=== PATIENT | female | born 1960 | race Two or more races ===

== ENCOUNTER 2018-06-23 06:00 | Day surgery (SDC) | payer BC ==
[~2018-06-23] VITALS: Ht 152.4 cm; Wt 56.7 kg
[~2018-06-23 06:00] MED LIST: ARIP10TA9 PO; ASCO500C9 PO; CHOL100013 PO; CLINDAMYCIN 900MG PREMIX 50 ML IV ONE; CYCL10TA2 PO; GLYC10.7 IH; HYDR-2145 PO; HYDR-2765 PO; LORA10TA3 PO; MONT10TA9 PO; MULT1TAB52 PO; POTA20TA82 PO; QUET50TA5 PO; VENTOLIN HFA18 GM INH
[2018-06-23] MEDS ORDERED: IV RINGERS,LACTATED 1000ML 1,000 ML IV SCH (07:00)
[2018-06-23] MEDS ORDERED: MORPHINE SULFATE 2 MG/ML VIAL. IV PRN (07:00)
[2018-06-23] MEDS ORDERED: LIDOCAINE 1% PF 2 ML VIAL. ID PRN (07:00)
[2018-06-23] MEDS ORDERED: HYDROmorphone 2 MG/ML VIAL IV PRN (07:00)
[2018-06-23] MEDS ORDERED: ONDANSETRON PF 4 MG/2 ML VIAL. IV PRN (07:00)
[2018-06-23] MEDS ORDERED: PROCHLORPERAZINE 10 MG/2 ML VIAL. IV PRN (07:00)
[2018-06-23] MEDS ORDERED: fentaNYL PF VIAL 100 MCG/2 ML VIAL IV PRN (07:00)
[2018-06-23] MEDS ORDERED: EPINEPHrine VIAL 30 MG/30 ML VIAL ONE (07:07)
[2018-06-23] MEDS ORDERED: BUPIVAC MPF-EPI 0.5%-1:200000 30 ML VIAL. ONE (07:07)
[2018-06-23] MEDS ORDERED: MIDAZOLAM HCL/PF 2 MG/2 ML VIAL. ONE (07:20)
[2018-06-23] MEDS ORDERED: fentaNYL PF VIAL 100 MCG/2 ML VIAL ONE ×4 (07:20→10:05)
[2018-06-23] MEDS ORDERED: ONDANSETRON PF 4 MG/2 ML VIAL. ONE (07:20)
[2018-06-23] MEDS ORDERED: DEXAMETHASONE SOD PHOS 20 MG/5 ML VIAL. ONE (07:20)
[2018-06-23] MEDS ORDERED: LIDOCAINE 2% PF Vial for OR 5 ML VIAL. ONE (07:20)
[2018-06-23] MEDS ORDERED: PROPOFOL 20 ML IV ONE (07:20)
--- NOTE | 2018-06-23 07:45 | DISCH ---
DISCHARGE INSTRUCTIONS Condition on Discharge Condition on Discharge: Stable Activity After Discharge Activity Instructions for Disc: Other, see below (ambulation with crutches until can walk without limping) Weight Bearing Status after Di: As tolerated Diet after Discharge Diet after Discharge: Regular Wound Incision Care Wound/Incision Care: Ice to area for comfort, Keep wound elevated, Change dressing (May remove dressing in 3 days may then shower, no soaking) Community/Resources/Services Services at Discharge: PT EVALUATE & TREAT (weightbearing as tolerated immediate motion standard ACL protocol with closed chain exercises) Contacting the [facility] after DC Call your doctor for: Concerns you may have Follow-Up Follow up with: Clara 1 week Treatment/Equipment after DC Adaptive Equipment Issued: MICHAEL Veronica MD Jun 23, 2018 07:45
[2018-06-23] MEDS ORDERED: OXYC1TAB19 PO (07:48)
[2018-06-23] MEDS ORDERED: PHENYLEPHRINE in 0.9% NACL PF 1 MG/10 ML SYRINGE. IV ONE (07:50)
[2018-06-23] MEDS ORDERED: ePHEDrine PF IN SALINE 50 MG/5 ML DISP.SYRIN IV ONE (07:53)
[2018-06-23] MEDS ORDERED: SEVOFLURANE 61 TO 120 MINUTES. IH ONE (08:46)
[2018-06-23] MEDS ORDERED: PROCHLORPERAZINE 10 MG/2 ML VIAL. ONE (09:31)
[2018-06-23] MEDS ORDERED: oxyCODONE/APAP 7.5/325 1 TAB TABLET PO ONE (09:45)
[2018-06-23] MEDS: fentaNYL PF VIAL 100 MCG/2 ML VIAL IV PRN ×3 (09:55→10:20)
[2018-06-23 11:15] VITALS: BP 115/64
--- NOTE | 2018-06-23 19:05 | PDOC4 ---
Operative Note Operative Note Date of surgery: 06/23/2018 Preoperative diagnosis: Right knee ACL tear Postoperative diagnosis: Same plus free edge fraying medial meniscus Operative procedure: Right knee arthroscopy partial medial meniscectomy and allograft ACL reconstruction Surgeon: Clara Assist: Elizabeth Anesthesia: Gen. 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 We had talked about her injury the functional anatomy possible nonoperative treatment rehabilitation and bracing versus ACL reconstruction and graft choices along with the recovery process rationale and possible risks of failure instability premature arthritis infection medical or other anesthetic complications. All her questions were answered she wishes to proceed with surgical evaluation and treatment and selects allograft ACL reconstruction. Operative text: Patient was identified procedure verified patient placed in supine position on the operating table. After adequate amounts of general anesthesia were administered the right lower extremity was prepped and draped in standard sterile fashion with a thigh tourniquet and after timeout was performed patient procedure identified and verified the right leg was examined under anesthesia found a full range of motion good patellofemoral tracking and increased laxity with a soft endpoint felt on Marbin and anterior drawer testingassociated ligaments and stability was noted. The right knee was exsanguinated by Esmarch bandage tourniquet inflated to 300 mmHg a lateral portal established medial portal established using spinal needle localization and the knee joint was systematically examined. Patellofemoral articulation and cartilage was noted to be in excellent condition no loose bodies noted in the gutters or suprapatellar pouch. Examination of medial compartment revealed good preservation of the cartilage with free edge tearing of the medial meniscus which was trimmed back to stable tissue using arthroscopic shaver. Lateral meniscus was probed and found to be intact. ACL was noted to be very stretched and functionally detached from the femoral attachment and remaining attachment only by wispy scar tissue. The posterior tibialis graft was prepared on the back table sized at a size 9 mm diameter and the [place] ACL was removed with the arthroscopic bipolar electrocautery. The [place] ACL guide system was used to first fashion a femoral tunnel with a 1/2 mm back wall 9 mm was drilled to the cortex and penetration carried out with a 4 mm drill bit to accommodate the toggle lock fixation device. Tibial drill guide was placed at the center of the [place] ACL footprint and a 9 mm drill was advanced bony fragments were removed from the knee joint with arthroscopic shaver and tunnel edges were rasped to eliminate any sharp edges. The allograft was then passed with a 15 mm closed loop toggle lock which was flipped without difficulty the knee was taken through flexion and extension ensuring adequate space available for the graft. Creep was removed with a Caspari tensioning boot set at 20 pounds of tension and taken through 10 flexion and extension cycles fixation was then carried out with a XO shape tibial fixation device with the knee held in full extension and backup fixation with a Quattro length knotless anchor 4.5 mm with a titanium tip. Excellent stability full range of motion was obtained graft was in excellent position knee was drained of arthroscopic fluid anterior medial incision closed with buried Vicryl subcuticular Monocryl. Sterile compressive dressings were applied patient was returned to recovery room in stable condition having tolerated procedure well. Elizabeth mitchell was present for the procedure assisted in the prepping draping positioning retraction and skin closure MICHAEL SHI MD Jun 23, 2018 19:05
== END 2018-06-23 11:15 | disposition home or self-care (01) ==
LOC: SURG 06:00
PROVIDERS: ATTEND Orthopaedic Surgery
DX: S83.511A Sprain of anterior cruciate ligament of right knee, initial encounter (principal); E55.9 Vitamin D deficiency, unspecified; E78.5 Hyperlipidemia, unspecified; Z90.710 Acquired absence of both cervix and uterus; Z88.0 Allergy status to penicillin; Z88.8 Allergy status to other drugs, medicaments and biological substances; X58.XXXA Exposure to other specified factors, initial encounter; Y93.89 Activity, other specified; Y92.89 Other specified places as the place of occurrence of the external cause; Y99.8 Other external cause status
CPT/HCPCS: 29881; 29888; 97161; A7015; C1713; C1762; J0171; J0780; J2001; J2250; J2370; J2405; J2704; J3010; J3490; J7120; J1100

== ENCOUNTER → 2019-08-08 | Outpatient (CLI) | payer BC ==
[~2019-08-08] MED LIST changes: -CLINDAMYCIN 900MG PREMIX 50 ML IV ONE; +MONT10TA49 PO; -MONT10TA9 PO; +OXYC1TAB19 PO; +POTA20TA4 PO; -POTA20TA82 PO
--- NOTE | 2019-08-08 11:33 | KCIC ---
MR of the right shoulder HISTORY: Chronic shoulder pain. TECHNIQUE: Routine multiplanar sequences are obtained. FINDINGS: Acromioclavicular joint is mildly degenerative. Deep articular side tear of the supraspinatus tendon at the critical zone. This measures about 5 mm AP diameter by 5 mm wide. This is 80% deep. There is a thin layer of overlying bursal surface tissue, and no evidence of complete full-thickness rupture. Generalized rotator cuff tendinosis. Partial subscapularis tendon tear. Mild rotator cuff muscle atrophy. Small moderate subdeltoid bursal effusion. Small glenohumeral joint effusion. Glenohumeral joint DJD. Abnormal signal at the posterosuperior labrum compatible with degenerative tear. There is at least degeneration of the remaining labrum. Biceps tendinosis with thickening and hyperintense signal. No evidence of acute fracture. No aggressive bone destruction. No acute soft tissue abnormality. IMPRESSION: 1. Small but deep articular side tear of the supraspinatus tendon critical zone. Partial subscapularis tendon tear. 2. Small to moderate subdeltoid bursal effusion or bursitis. 3. Small glenohumeral joint effusion with DJD. 4. Labral degeneration with the posterosuperior labral degenerative tearing. Electronically signed by: Francois Ortiz MD (08/08/2019 11:30 AM) [id number]
--- NOTE | 2019-08-08 12:46 | KCIC ---
MR of the left shoulder HISTORY: Chronic shoulder pain. TECHNIQUE: Routine multiplanar sequences are obtained. FINDINGS: The acromioclavicular joint is mildly degenerative. Rotator cuff tendinosis. Linear signal within the supraspinatus footplate attachment with probable slight bursal surface violation on a single coronal slice, series 6, image 11. Also probable subtle articular surface violation on a single coronal slice, image 10. No evidence of retraction. Subscapularis demonstrates no evidence of measurable tear. Mild subdeltoid bursal fluid. Small glenohumeral joint effusion. Glenohumeral joint DJD. Superior labrum is irregular and heterogeneous compatible with degeneration or degenerative tearing. No evidence of acute labral detachment. Biceps tendinosis with partial biceps tendon tearing from anchor through the groove. No evidence of acute fracture. No aggressive bone destruction. IMPRESSION: 1. Rotator cuff tendinosis. Small thin linear tear across the anterior supraspinatus footprint, probably full-thickness, but without retraction. 2. Biceps tendinosis with diffuse partial interstitial tearing. 3. Superior labral degeneration or degenerative tearing. 4. Glenohumeral joint and subdeltoid bursal effusion. 5. DJD. Electronically signed by: Francois Ortiz MD (08/08/2019 12:43 PM) [facility]
== END ==
LOC: KCIC MRI 09:56
PROVIDERS: ATTEND Orthopaedic Surgery
DX: S43.491A Other sprain of right shoulder joint, initial encounter (principal); S46.212A Strain of muscle, fascia and tendon of other parts of biceps, left arm, initial encounter; M75.101 Unspecified rotator cuff tear or rupture of right shoulder, not specified as traumatic; M19.012 Primary osteoarthritis, left shoulder; M25.412 Effusion, left shoulder; M25.411 Effusion, right shoulder; G89.29 Other chronic pain; X58.XXXA Exposure to other specified factors, initial encounter; Y93.89 Activity, other specified; Y92.89 Other specified places as the place of occurrence of the external cause; Y99.8 Other external cause status
CPT/HCPCS: 73221

== ENCOUNTER 2019-11-04 11:00 | Inpatient (IN) | payer BC ==
[~2019-11-04] VITALS: Ht 154.9 cm; Wt 53.5 kg
[2019-11-04] MEDS ORDERED: IPRATRPIUM/ALBUTEROL 0.5/2.5MG 3 ML NEBU. NEB ONE (12:00)
[2019-11-04] MEDS ORDERED: ALBUTEROL SULFATE 2.5 MG/3 ML NEBU. NEB ONE (12:00)
[2019-11-04] MEDS ORDERED: methylPREDNISolone SOD SUCC PF 125 MG/2 ML VIAL. IV ONE (12:00)
[2019-11-04 12:18] LABS: BASO # 0.1 x10^3/uL (0.0-0.2); BASO % 1 % (0-3); EOS # 0.2 x10^3/uL (0.0-0.7); EOS % 2 % (0-3); HEMATOCRIT 43.3 % (36.0-47.0); HEMOGLOBIN 14.6 g/dL (12.0-15.5); LYMPH # 3.6 x10^3/uL (1.0-4.8); LYMPH % 33 % (24-48); MEAN CORPUSCULAR HEMOGLOBIN 33 pg (25-35); MEAN CORPUSCULAR HGB CONC 34 g/dL (31-37); MEAN CORPUSCULAR VOLUME 96 fL (79-100); MONO # 0.9 x10^3/uL (0.0-1.1); MONO % 8 % (0-9); NEUT # 6.1 x10^3/uL (1.8-7.7); NEUT % 56 % (31-73); PLATELET COUNT 385 x10^3/uL (140-400); RED CELL DISTRIBUTION WIDTH 16.2 % (11.5-14.5); WHITE BLOOD COUNT 10.9 x10^3/uL (4.0-11.0)
[2019-11-04 12:27] LABS: CALCIUM 10.6 mg/dL (8.5-10.1); CREATININE 0.9 mg/dL (0.6-1.0); GFR 64.3; POTASSIUM 3.4 mmol/L (3.5-5.1)
[2019-11-04 12:34] LABS: ALBUMIN 3.8 g/dL (3.4-5.0); ALBUMIN/GLOBULIN RATIO 1.2 (1.0-1.7); TOTAL BILIRUBIN 0.3 mg/dL (0.2-1.0); TOTAL PROTEIN 7.1 g/dL (6.4-8.2)
--- NOTE | 2019-11-04 12:50 | RAD ---
CHEST AP ONLY Clinical History: Dyspnea Technique: AP view of the chest was obtained at 11/04/2019 11:47 AM. Comparison: None. Findings: The cardiomediastinal silhouette is normal. The pulmonary vasculature is normal. There is a few curly B lines on the right and there is mild linear reticular opacities of the lungs. Impression: Mild reticular opacities of the lungs likely chronic pulmonary fibrosis. It is difficult to exclude possible atypical pneumonia or fluid overload. Electronically signed by: Andrea Higgins III, MD (11/04/2019 12:47 PM) [id number]
--- NOTE | 2019-11-04 13:07 | EKG ---
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
--- NOTE | 2019-11-04 13:45 | PDOC1 ---
History and Physical Date of Admission Date of Admission DATE: 11/04/19 TIME: 13:44 Current Medications Current Medications Current Medications Albuterol/ Ipratropium (Duoneb) 6 ml 1X ONCE NEB Last administered on 11/04/19at 12:34; Start 11/04/19 at 12:00; Stop 11/04/19 at 12:01; Status DC Methylprednisolone Sodium Succinate (SOLU-Medrol 125MG VIAL) 125 mg 1X ONCE IV Last administered on 11/04/19at 11:59; Start 11/04/19 at 12:00; Stop 11/04/19 at 12:01; Status DC Albuterol Sulfate (Ventolin Neb Soln) 2.5 mg 1X ONCE NEB Last administered on 11/04/19at 12:34; Start 11/04/19 at 12:00; Stop 11/04/19 at 12:01; Status DC Lorazepam (Ativan Inj) 0.5 mg 1X ONCE IV Last administered on 11/04/19at 12:00; Start 11/04/19 at 12:00; Stop 11/04/19 at 12:01; Status DC Active Scripts Active Percocet 7.5-325 Mg Tablet (Oxycodone/Acetaminophen) 1 Each Tablet 1 Tab PO PRN Q4HRS PRN Reported Multivitamins (Multivitamin) 1 Each Tablet 1 Tab PO DAILY Vitamin C (Ascorbic Acid) 500 Mg Capsule 500 Mg PO DAILY Ventolin Hfa Inhaler (Albuterol Sulfate) 18 Gm Hfa.aer.ad 2 Puff INH PRN Q4HRS PRN Bevespi Aerosphere Inhaler (Glycopyrrolate/Formoterol Fum) 10.7 Gm Hfa.aer.ad 10.7 Gm IH BID Vitamin D (Cholecalciferol (Vitamin D3)) 1,000 Unit Capsule 1 Cap PO DAILY Cyclobenzaprine Hcl 10 Mg Tablet 1 Tab PO PRN TID PRN Seroquel (Quetiapine Fumarate) 50 Mg Tablet 1 Tab PO DAILY Hydrochlorothiazide Tablet (Hydrochlorothiazide) 25 Mg Tablet 25 Mg PO DAILY Potassium Chloride 20 Meq Tablet.er 20 Meq PO DAILY Montelukast Sodium Tablet (Montelukast Sodium) 10 Mg Tablet 1 Tab PO QHS Abilify (Aripiprazole) 10 Mg Tablet 10 Mg PO QHS Loratadine 10 Mg Tablet 1 Tab PO DAILY Allergies Allergies: Coded Allergies: fluticasone (Verified Allergy, Severe, anaphylaxis, 11/04/19) allergic to inhaled steroids TAKES ASMANEX AT HOME AND FLONASE NASAL SPRAY prednisone (Verified Allergy, Intermediate, hives and vomiting, 11/04/19) steroids Penicillins (Verified Allergy, Unknown, BAD RASH, 06/23/18) amoxicillin (Verified Allergy, Unknown, BAD RASH,VOMITING, 06/23/18) clavulanic acid (Verified Allergy, Unknown, BAD RASH,VOMITING, 06/23/18) Vitals Vitals Vital Signs Date Time Temp Pulse Resp B/P (MAP) Pulse Ox O2 Delivery O2 Flow Rate FiO2 11/04/19 12:36 96 Nasal Cannula 3.0 11/04/19 12:30 104 22 127/68 (87) 11/04/19 11:00 99.5 99.5 Labs Labs Laboratory Tests Test 11/04/19 11:15 White Blood Count 10.9 x10^3/uL (4.0-11.0) Red Blood Count 4.50 x10^6/uL (3.50-5.40) Hemoglobin 14.6 g/dL (12.0-15.5) Hematocrit 43.3 % (36.0-47.0) Mean Corpuscular Volume 96 fL (79-100) Mean Corpuscular Hemoglobin 33 pg (25-35) Mean Corpuscular Hemoglobin Concent 34 g/dL (31-37) Red Cell Distribution Width 16.2 % (11.5-14.5) Platelet Count 385 x10^3/uL (140-400) Neutrophils (%) (Auto) 56 % (31-73) Lymphocytes (%) (Auto) 33 % (24-48) Monocytes (%) (Auto) 8 % (0-9) Eosinophils (%) (Auto) 2 % (0-3) Basophils (%) (Auto) 1 % (0-3) Neutrophils # (Auto) 6.1 x10^3/uL (1.8-7.7) Lymphocytes # (Auto) 3.6 x10^3/uL (1.0-4.8) Monocytes # (Auto) 0.9 x10^3/uL (0.0-1.1) Eosinophils # (Auto) 0.2 x10^3/uL (0.0-0.7) Basophils # (Auto) 0.1 x10^3/uL (0.0-0.2) Sodium Level 140 mmol/L (136-145) Potassium Level 3.4 mmol/L (3.5-5.1) Chloride Level 100 mmol/L (98-107) Carbon Dioxide Level 27 mmol/L (21-32) Anion Gap 13 (6-14) Blood Urea Nitrogen 14 mg/dL (7-20) Creatinine 0.9 mg/dL (0.6-1.0) Estimated GFR (Cockcroft-Gault) 64.3 BUN/Creatinine Ratio 16 (6-20) Glucose Level 141 mg/dL (70-99) Calcium Level 10.6 mg/dL (8.5-10.1) Total Bilirubin 0.3 mg/dL (0.2-1.0) Aspartate Amino Transf (AST/SGOT) 16 U/L (15-37) Alanine Aminotransferase (ALT/SGPT) 22 U/L (14-59) Alkaline Phosphatase 52 U/L (46-116) Troponin I Quantitative 0.018 ng/mL (0.000-0.055) [id number]-Type Natriuretic Peptide 51 pg/mL (0-124) Total Protein 7.1 g/dL (6.4-8.2) Albumin 3.8 g/dL (3.4-5.0) Albumin/Globulin Ratio 1.2 (1.0-1.7) Laboratory Tests Test 11/04/19 11:15 White Blood Count 10.9 x10^3/uL (4.0-11.0) Red Blood Count 4.50 x10^6/uL (3.50-5.40) Hemoglobin 14.6 g/dL (12.0-15.5) Hematocrit 43.3 % (36.0-47.0) Mean Corpuscular Volume 96 fL (79-100) Mean Corpuscular Hemoglobin 33 pg (25-35) Mean Corpuscular Hemoglobin Concent 34 g/dL (31-37) Red Cell Distribution Width 16.2 % (11.5-14.5) Platelet Count 385 x10^3/uL (140-400) Neutrophils (%) (Auto) 56 % (31-73) Lymphocytes (%) (Auto) 33 % (24-48) Monocytes (%) (Auto) 8 % (0-9) Eosinophils (%) (Auto) 2 % (0-3) Basophils (%) (Auto) 1 % (0-3) Neutrophils # (Auto) 6.1 x10^3/uL (1.8-7.7) Lymphocytes # (Auto) 3.6 x10^3/uL (1.0-4.8) Monocytes # (Auto) 0.9 x10^3/uL (0.0-1.1) Eosinophils # (Auto) 0.2 x10^3/uL (0.0-0.7) Basophils # (Auto) 0.1 x10^3/uL (0.0-0.2) Sodium Level 140 mmol/L (136-145) Potassium Level 3.4 mmol/L (3.5-5.1) Chloride Level 100 mmol/L (98-107) Carbon Dioxide Level 27 mmol/L (21-32) Anion Gap 13 (6-14) Blood Urea Nitrogen 14 mg/dL (7-20) Creatinine 0.9 mg/dL (0.6-1.0) Estimated GFR (Cockcroft-Gault) 64.3 BUN/Creatinine Ratio 16 (6-20) Glucose Level 141 mg/dL (70-99) Calcium Level 10.6 mg/dL (8.5-10.1) Total Bilirubin 0.3 mg/dL (0.2-1.0) Aspartate Amino Transf (AST/SGOT) 16 U/L (15-37) Alanine Aminotransferase (ALT/SGPT) 22 U/L (14-59) Alkaline Phosphatase 52 U/L (46-116) Troponin I Quantitative 0.018 ng/mL (0.000-0.055) UC-Pfy-R-Type Natriuretic Peptide 51 pg/mL (0-124) Total Protein 7.1 g/dL (6.4-8.2) Albumin 3.8 g/dL (3.4-5.0) Albumin/Globulin Ratio 1.2 (1.0-1.7) Images Images CHEST AP ONLY Clinical History: Dyspnea Technique: AP view of the chest was obtained at 11/04/2019 11:47 AM. Comparison: None. Findings: The cardiomediastinal silhouette is normal. The pulmonary vasculature is normal. There is a few curly B lines on the right and there is mild linear reticular opacities of the lungs. Impression: Mild reticular opacities of the lungs likely chronic pulmonary fibrosis. It is difficult to exclude possible atypical pneumonia or fluid overload. Electronically signed by: Macarena Higgins III, MD (11/04/2019 12:47 PM) [id number] DICTATED and SIGNED BY: MACARENA HIGGINS III, MD DATE: 11/04/19 1247 VTE Prophylaxis Ordered VTE Prophylaxis Devices: Yes VTE Pharmacological Prophylaxi: Yes JONATHAN MONTERROSO MD November 04, 2019 13:45
--- NOTE | 2019-11-04 13:50 | PHYS DOC ---
Past Medical History Past Medical History: Anxiety, COPD Additional Past Medical Histor: loli paiz; PSVT Past Surgical History: Hysterectomy Additional Past Surgical Histo: R knee; cataracts; Smoking Status: Current Every Day Smoker Alcohol Use: Occasionally General Adult EDM: Chief Complaint: SHORTNESS OF BREATH HPI: HPI: Patient is a 58-year-old smoker with a history of COPD who presents with a several day history of progressive shortness of breath cough and congestion. She has not had any fever that she knows of. She does state that she continues to smoke. She denies any hemoptysis. She also states that when she coughs her chest hurts. She has had trouble walking without becoming very short of breath. She has been taking some medication for her breathing at home but it has not helped. Patient states she woke up this morning with an extreme anxiety attack and her breathing difficulties intensified after that. [] Review of Systems: Review of Systems: Constitutional: Denies fever or chills. [] Eyes: Denies change in visual acuity. [] HENT: Denies nasal congestion or sore throat. [] Respiratory: Per HPI [] Cardiovascular: Denies chest pain or edema. [] GI: Denies abdominal pain, nausea, vomiting, bloody stools or diarrhea. [] : Denies dysuria. [] Musculoskeletal: Denies back pain or joint pain. [] Integument: Denies rash. [] Neurologic: Denies headache, focal weakness or sensory changes. [] Endocrine: Denies polyuria or polydipsia. [] Lymphatic: Denies swollen glands. [] Psychiatric: Reports anxiety. [] Heart Score: Risk Factors: Risk Factors: DM, Current or recent (<one month) smoker, HTN, HLP, family history of CAD, obesity. Risk Scores: Score 0 - 3: 2.5% MACE over next 6 weeks - Discharge Home Score 4 - 6: 20.3% MACE over next 6 weeks - Admit for Clinical Observation Score 7 - 10: 72.7% MACE over next 6 weeks - Early Invasive Strategies Current Medications: Current Medications Medications (Trade) Dose Ordered Sig/Jeannie Start Time Stop Time Status Last Admin Dose Admin Albuterol Sulfate (Ventolin Neb Soln) 2.5 mg 1X ONCE 11/04/19 12:00 11/04/19 12:01 DC 11/04/19 12:34 2.5 MG Albuterol/ Ipratropium (Duoneb) 6 ml 1X ONCE 11/04/19 12:00 11/04/19 12:01 DC 11/04/19 12:34 6 ML Lorazepam (Ativan Inj) 0.5 mg 1X ONCE 11/04/19 12:00 11/04/19 12:01 DC 11/04/19 12:00 0.5 MG Methylprednisolone Sodium Succinate (SOLU-Medrol 125MG VIAL) 125 mg 1X ONCE 11/04/19 12:00 11/04/19 12:01 DC 11/04/19 11:59 125 MG Allergies: Allergies: Allergies Coded Allergies Type Severity Reaction Last Updated Verified fluticasone Allergy Severe anaphylaxis 11/04/19 Yes prednisone Allergy Intermediate hives and vomiting 11/04/19 Yes Penicillins Allergy Unknown BAD RASH 06/23/18 Yes amoxicillin Allergy Unknown BAD RASH,VOMITING 06/23/18 Yes clavulanic acid Allergy Unknown BAD RASH,VOMITING 06/23/18 Yes Physical Exam: PE: Constitutional: Well developed, well nourished, moderate respiratory distress, non-toxic appearance. [] HENT: Normocephalic, atraumatic, bilateral external ears normal, oropharynx moist, no oral exudates, nose normal. [] Eyes: PERRLA, EOMI, conjunctiva normal, no discharge. [] Neck: Normal range of motion, no tenderness, supple, no stridor. [] Cardiovascular:Heart rate regular rhythm, no murmur [] Lungs & Thorax: Scattered wheezes throughout both lungs [] Abdomen: Bowel sounds normal, soft, no tenderness, no masses, no pulsatile masses. [] Skin: Warm, dry, no erythema, no rash. [] Back: No tenderness, no CVA tenderness. [] Extremities: No tenderness, no cyanosis, no clubbing, ROM intact, no edema. [] Neurologic: Alert and oriented X 3, normal motor function, normal sensory function, no focal deficits noted. [] Psychologic: Extremely anxious l. [] Current Patient Data: Labs: Laboratory Tests Test 11/04/19 11:15 White Blood Count 10.9 x10^3/uL (4.0-11.0) Red Blood Count 4.50 x10^6/uL (3.50-5.40) Hemoglobin 14.6 g/dL (12.0-15.5) Hematocrit 43.3 % (36.0-47.0) Mean Corpuscular Volume 96 fL (79-100) Mean Corpuscular Hemoglobin 33 pg (25-35) Mean Corpuscular Hemoglobin Concent 34 g/dL (31-37) Red Cell Distribution Width 16.2 % (11.5-14.5) H Platelet Count 385 x10^3/uL (140-400) Neutrophils (%) (Auto) 56 % (31-73) Lymphocytes (%) (Auto) 33 % (24-48) Monocytes (%) (Auto) 8 % (0-9) Eosinophils (%) (Auto) 2 % (0-3) Basophils (%) (Auto) 1 % (0-3) Neutrophils # (Auto) 6.1 x10^3/uL (1.8-7.7) Lymphocytes # (Auto) 3.6 x10^3/uL (1.0-4.8) Monocytes # (Auto) 0.9 x10^3/uL (0.0-1.1) Eosinophils # (Auto) 0.2 x10^3/uL (0.0-0.7) Basophils # (Auto) 0.1 x10^3/uL (0.0-0.2) Sodium Level 140 mmol/L (136-145) Potassium Level 3.4 mmol/L (3.5-5.1) L Chloride Level 100 mmol/L (98-107) Carbon Dioxide Level 27 mmol/L (21-32) Anion Gap 13 (6-14) Blood Urea Nitrogen 14 mg/dL (7-20) Creatinine 0.9 mg/dL (0.6-1.0) Estimated GFR (Cockcroft-Gault) 64.3 BUN/Creatinine Ratio 16 (6-20) Glucose Level 141 mg/dL (70-99) H Calcium Level 10.6 mg/dL (8.5-10.1) H Total Bilirubin 0.3 mg/dL (0.2-1.0) Aspartate Amino Transferase (AST) 16 U/L (15-37) Alanine Aminotransferase (ALT) 22 U/L (14-59) Alkaline Phosphatase 52 U/L (46-116) Troponin I Quantitative 0.018 ng/mL (0.000-0.055) AR-Bbk-O-Type Natriuretic Peptide 51 pg/mL (0-124) Total Protein 7.1 g/dL (6.4-8.2) Albumin 3.8 g/dL (3.4-5.0) Albumin/Globulin Ratio 1.2 (1.0-1.7) Laboratory Tests 11/04/19 11:15 Laboratory Tests 11/04/19 11:15 Vital Signs: Vital Signs Date Time Temp Pulse Resp B/P (MAP) Pulse Ox O2 Delivery O2 Flow Rate FiO2 11/04/19 12:36 96 Nasal Cannula 3.0 11/04/19 12:30 104 22 127/68 (87) 11/04/19 11:00 99.5 99.5 EKG: EKG: EKG: Sinus tachycardia rate of [address]-T changes [] Radiology/Procedures: Radiology/Procedures: []REASON: soa PROCEDURE: CHEST AP ONLY CHEST AP ONLY Clinical History: Dyspnea Technique: AP view of the chest was obtained at 11/04/2019 11:47 AM. Comparison: None. Findings: The cardiomediastinal silhouette is normal. The pulmonary vasculature is normal. There is a few curly B lines on the right and there is mild linear reticular opacities of the lungs. Impression: Mild reticular opacities of the lungs likely chronic pulmonary fibrosis. It is difficult to exclude possible atypical pneumonia or fluid overload. Course & Med Decision Making: Course & Med Decision Making Pertinent Labs and Imaging studies reviewed. (See chart for details) [ED course: Evaluation reveals a 58-year-old female with significant anxiety and wheezing. She was given an hour-long breathing treatment 125 of Solu-Medrol which did help her breathing however I also gave her a milligram of Ativan which seemed to control her symptoms even better than steroids and duo nebs patient will be admitted to the hospital for further evaluation.] CRITICAL CARE: Time spent was 35 minutes. This includes medical management, evaluation, reevaluation, discussion with consultants and family. Critical Care does NOT include time spent on separately billed procedures. Dragon Disclaimer: Dragon Disclaimer: This electronic medical record was generated, in whole or in part, using a voice recognition dictation system. Departure Departure Impression: Primary Impression: COPD exacerbation Additional Impression: Anxiety about health Disposition: ADMITTED INPATIENT Admitting Physician: CHRIS Condition: GUARDED Referrals: EDALATI,JIMMY D MD (PCP) TEODORO AGUIRRE DO November 04, 2019 13:50
[2019-11-04] MEDS ORDERED: ONDANSETRON PF 4 MG/2 ML VIAL. IV PRN (14:00)
[2019-11-04] MEDS: IPRATRPIUM/ALBUTEROL 0.5/2.5MG 3 ML NEBU. NEB SCH ×2 (16:00→20:00)
[2019-11-04] MEDS ORDERED: CYAN500T52 PO (17:05)
[2019-11-04] MEDS ORDERED: FOLI20CA PO (17:05)
[2019-11-04] MEDS ORDERED: MOME110A IH (17:05)
[2019-11-04] MEDS ORDERED: POTA20TA4 PO (17:05)
[2019-11-04] MEDS ORDERED: MELA10CA PO (17:13)
[2019-11-04] MEDS ORDERED: TRAZ-118 PO (17:13)
[2019-11-04] MEDS ORDERED: CYCL10TA2 PO (17:13)
[2019-11-04] MEDS ORDERED: QUET200T4 PO (17:13)
[2019-11-04] MEDS ORDERED: BENZ200C47 PO (17:13)
[2019-11-04] MEDS ORDERED: HYDR-2763 PO (17:13)
[2019-11-04 17:15] VITALS: BP 103/65
[2019-11-04] MEDS ORDERED: ASPI-630 PO (17:16)
[2019-11-04] MEDS ORDERED: CYCLOBENZAPRINE 10 MG TABLET. PO PRN (18:00)
[2019-11-04] MEDS ORDERED: NON FORMULARY ITEM (Albuterol Sulfate (Ventolin Hfa Inhaler) 2 PUFF) INH PRN (18:00)
[2019-11-04] MEDS ORDERED: ALBUTEROL SULFATE 2.5 MG/3 ML NEBU. NEB PRN (18:15)
[2019-11-04 19:00] VITALS: BP 98/57
[2019-11-04] MEDS ORDERED: BUDESONIDE 0.5 MG/2 ML NEBU. NEB SCH (20:00)
[2019-11-04] MEDS ORDERED: BENZONATATE 100 MG CAPSULE. PO PRN (21:00)
[2019-11-04] MEDS ORDERED: NON FORMULARY ITEM (Mometasone Furoate (Asmanex) 110 MCG) IH SCH (21:00)
[2019-11-04] MEDS ORDERED: ALBUTEROL SULFATE 2.5 MG/3 ML NEBU. NEB SCH (21:00)
[2019-11-04] MEDS ORDERED: traZODone 50 MG TABLET. PO SCH (21:00)
[2019-11-04] MEDS: POTASSIUM CHLORIDE 20 MEQ TABLET.ER. PO SCH (21:33)
[2019-11-04] MEDS: MONTELUKAST SODIUM 10 MG TABLET. PO SCH (21:33)
[2019-11-04] MEDS: ASPIRIN CHEWABLE 81 MG TABLET. PO SCH (21:34)
[2019-11-04] MEDS: traZODone 100 MG TABLET. PO SCH (21:34)
[2019-11-04] MEDS: QUEtiapine 100 MG TABLET. PO PRN (23:20)
[2019-11-04 23:33] VITALS: BP 97/55
[2019-11-05] VITALS (8 sets, daily range): BP systolic 95–166; BP diastolic 53–113
[2019-11-05] MEDS: HYDROcodone/APAP 7.5/325MG 1 TAB TABLET PO PRN ×4 (03:59→21:02)
[2019-11-05] MEDS ORDERED: BUDESONIDE 0.5 MG/2 ML NEBU. NEB PRN (06:45)
[2019-11-05] MEDS: IPRATRPIUM/ALBUTEROL 0.5/2.5MG 3 ML NEBU. NEB SCH ×2 (08:00→10:27)
[2019-11-05] MEDS ORDERED: FLUTICASONE 50MCG/NASAL SPRAY 16GM BOTTLE. NS SCH (09:00)
[2019-11-05] MEDS: CHOLECALCIFEROL (VITAMIN D3) 1,000 UNIT TABLET PO SCH (09:08)
[2019-11-05] MEDS: FOLIC ACID 1 MG TABLET. PO SCH (09:08)
[2019-11-05] MEDS: CYANOCOBALAMIN (VITAMIN B-12) 1,000 MCG TABLET. PO SCH (09:08)
[2019-11-05] MEDS: POTASSIUM CHLORIDE 20 MEQ TABLET.ER. PO SCH ×2 (09:08→16:45)
[2019-11-05] MEDS: CETIRIZINE HCL 10 MG TABLET. PO SCH (09:08)
--- NOTE | 2019-11-05 10:07 | CONS ---
DATE OF CONSULTATION: PULMONARY CONSULTATION ATTENDING PHYSICIAN: Seb Reddy MD REASON FOR CONSULTATION: Dyspnea, COPD exacerbation and abnormal chest x-ray. HISTORY OF PRESENT ILLNESS: The patient is a 58-year-old who has smoked for about 30+ years. She presented to the hospital with complaint of increasing shortness of breath. She said she has a cough and chest congestion. She said that these symptoms have been going on for a few months. She denied any fever. No headaches, no nausea, vomiting or diarrhea. No hemoptysis. No weight loss. The patient was seen and hospitalized. I have reviewed the patient's chest x-ray is consistent with COPD. Although, I was not impressed with Radiology report of fibrosis. PAST MEDICAL HISTORY: Significant for anxiety, COPD, unknown FEV1; history of Patricia-Quijano virus infection, history of PSVT. History of TB exposure 30 years ago, but she had no symptoms of TB. PAST SURGICAL HISTORY: Hysterectomy, right knee and cataract surgery. SOCIAL HISTORY: Smoker for about 25-30 years. ALLERGIES: PENICILLIN, AMOXICILLIN, CLAVULANIC ACID, FLUTICASONE AND PREDNISONE. REVIEW OF SYSTEMS: Twelve-point system obtained. Pertinent positives discussed in my history of present illness, otherwise noncontributory. All systems that were negative were reviewed as well. FAMILY HISTORY: Noncontributory to lungs. PHYSICAL EXAMINATION: GENERAL: She is in no obvious respiratory distress. VITAL SIGNS: Requiring 3 liters of oxygen, 93% saturation, afebrile, blood pressure on the low side, 95 systolic. NECK: Supple. LUNGS: With diminished breath sounds. CARDIOVASCULAR: With a regular rate and rhythm. ABDOMEN: Soft. EXTREMITIES: With no pitting edema. LABORATORY DATA: Reviewed. White cell count 10.9, hemoglobin 14.6 and platelets are 385. BUN 14 and creatinine 0.9. IMPRESSION AND PLAN: 1. Dyspnea with acute hypoxic respiratory failure secondary to acute exacerbation of chronic obstructive pulmonary disease. 2. No obvious infiltrates seen on the chest x-ray. Radiographically I am not impressed with her chest x-ray report of mild fibrosis. PLAN: 1. We will consider doing CT chest once she is ruled out for COVID-19. 3. Pending COVID-19 testing. Clinically, less likely. 4. Smoking cessation counseling provided. 5. We will continue with nebulizer. 6. Keep sats > 92%. 6 min walk at DC The patient will need a 6-minute walk test at the time of discharge. ISSAC BAE MD DR: FELECIA/lulu JOB#: [id number] / [id number] REBECA
--- NOTE | 2019-11-05 12:56 | PDOC1 ---
History and Physical Date of Admission Date of Admission DATE: 11/05/19 TIME: 12:55 Identification/Chief Complaint Chief Complaint Shortness of breath History of Present Illness History of Present Illness Ms Davis is a 58 yo F w/ PMHx anxiety, COPD, PSVT, History of TB exposure 30 years ago in [place], and who has smoked for about 30 years presented to ED c/o worsening shortness of breath. She said she has a cough and chest congestion. She said that these symptoms have been going on for a few months. She denied any fever. No headaches, no nausea, vomiting or diarrhea. No hemoptysis. No weight loss. No recent travel or exposure to COVID 19 patients. CXR more consistent with COPD. She has not noted fevers at home and feels a bit improved after steroids. WBC 10.9, Hb 14.6 and platelets are 385. BUN 14 and creatinine 0.9. O2 desaturations down to 87% on room air in ED, and transitioned to 3L NCO2 with saturations 93%. HR 122 BPM EKG - Sinus tachycardia rate of [address]-T changes She was tested for COVID 19 in ED and admitted for further treatment. Past Medical History Pulmonary: Bronchitis, COPD GI: No pertinent hx Heme/Onc: No pertinent hx Hepatobiliary: No pertinent hx Psych: Anxiety Rheumatologic: No pertinent hx Infectious disease: No pertinent hx ENT: No pertinent hx Renal/: No pertinent hx Endocrine: No pertinent hx Dermatology: No pertinent hx Past Surgical History Past Surgical History: Cataract Removal, Hysterectomy, Other (Right knee arthroscopy) Family History Family History: Hypertension Social History Smoke: 1 pack per day ALCOHOL: rare Drugs: None Current Problem List Problem List Problems Medical Problems: (1) Anxiety about health Status: Acute (2) COPD exacerbation Status: Acute Current Medications Current Medications Current Medications Albuterol/ Ipratropium (Duoneb) 6 ml 1X ONCE NEB Last administered on 11/04/19at 12:34; Start 11/04/19 at 12:00; Stop 11/04/19 at 12:01; Status DC Methylprednisolone Sodium Succinate (SOLU-Medrol 125MG VIAL) 125 mg 1X ONCE IV Last administered on 11/04/19at 11:59; Start 11/04/19 at 12:00; Stop 11/04/19 at 12:01; Status DC Albuterol Sulfate (Ventolin Neb Soln) 2.5 mg 1X ONCE NEB Last administered on 11/04/19at 12:34; Start 11/04/19 at 12:00; Stop 11/04/19 at 12:01; Status DC Lorazepam (Ativan Inj) 0.5 mg 1X ONCE IV Last administered on 11/04/19at 12:00; Start 11/04/19 at 12:00; Stop 11/04/19 at 12:01; Status DC Ondansetron HCl (Zofran) 4 mg PRN Q8HRS PRN IV NAUSEA/VOMITING; Start 11/04/19 at 14:00; Stop 11/05/19 at 13:59 Albuterol/ Ipratropium (Duoneb) 3 ml RTQID NEB ; Start 11/04/19 at 16:00; Stop 11/05/19 at 15:59 Aspirin (Aspirin Chewable) 81 mg HS PO Last administered on 11/04/19at 21:34; Start 11/04/19 at 21:00 Cyclobenzaprine HCl (Flexeril) 10 mg PRN BID PRN PO MUSCLE SPASTICITY Last administered on 11/05/19at 03:32; Start 11/04/19 at 18:00 Acetaminophen/ Hydrocodone Bitart (Lortab 7.5/325) 1 tab PRN Q6HRS PRN PO PAIN Last administered on 11/05/19at 09:09; Start 11/04/19 at 18:00 Montelukast Sodium (Singulair) 10 mg QHS PO Last administered on 11/04/19at 21:33; Start 11/04/19 at 21:00 Potassium Chloride (Klor-Con) 40 meq BIDAC PO Last administered on 11/05/19at 09:08; Start 11/04/19 at 18:30 Trazodone HCl (Desyrel) 50 mg HS PO ; Start 11/04/19 at 21:00; Stop 11/04/19 at 18:57; Status DC Non-Formulary Medication (Albuterol Sulfate (Ventolin Hfa Inhaler)) 2 puff PRN Q4HRS PRN INH SHORTNESS OF BREATH; Start 11/04/19 at 18:00; Status UNV Benzonatate (Tessalon Perle) 200 mg PRN Q8HRS PRN PO COUGH; Start 11/04/19 at 21:00 Vitamin D (Vitamin D3) 1,000 unit DAILY PO Last administered on 11/05/19at 09:08; Start 11/05/19 at 09:00 Cyanocobalamin (Vitamin B-12) 500 mcg DAILY PO Last administered on 11/05/19at 09:08; Start 11/05/19 at 09:00 Folic Acid (Folic Acid) 1 mg DAILY PO Last administered on 11/05/19at 09:08; Start 11/05/19 at 09:00 Albuterol Sulfate (Ventolin Neb Soln) 2.5 mg RTQID NEB ; Start 11/04/19 at 21:00; Stop 11/05/19 at 06:31; Status DC Cetirizine HCl (ZyrTEC) 10 mg DAILY PO Last administered on 11/05/19at 09:08; Start 11/05/19 at 09:00 Non-Formulary Medication (Mometasone Furoate (Asmanex)) 110 mcg BID IH ; Start 11/04/19 at 21:00; Status UNV Quetiapine Fumarate (SEROquel) 600 mg PRN QHS PRN PO AGITATION Last administered on 11/04/19at 23:20; Start 11/04/19 at 18:15 Albuterol Sulfate (Ventolin Neb Soln) 2.5 mg PRN Q4HRS PRN NEB SHORTNESS OF BREATH; Start 11/04/19 at 18:15 Fluticasone Propionate (Flonase) 2 spray DAILY NS ; Start 11/05/19 at 09:00; Status UNV Budesonide (Pulmicort) 0.5 mg RTBID NEB ; Start 11/04/19 at 20:00; Stop 11/05/19 at 06:35; Status DC Trazodone HCl (Desyrel) 100 mg QHS PO Last administered on 11/04/19at 21:34; Start 11/04/19 at 21:00 Budesonide (Pulmicort) 0.5 mg PRN BID PRN NEB WHEEZING; Start 11/05/19 at 06:45 Active Scripts Active Reported Aspirin 81 Mg Tab.chew 81 Mg PO HS Trazodone Hcl 50 Mg Tablet 100 Mg PO HS Melatonin 10 Mg Capsule 10 Mg PO HS Seroquel (Quetiapine Fumarate) 200 Mg Tablet 600 Mg PO HS PRN Cyclobenzaprine Hcl 10 Mg Tablet 10 Mg PO BID PRN Hydrocodone-Acetamin 7.5-325 (Hydrocodone/Acetaminophen) 1 Each Tablet 7.5-325 Mg PO Q6HRS PRN Benzonatate 200 Mg Capsule 200 Mg PO Q8HRS PRN Vitamin B-12 (Cyanocobalamin (Vitamin B-12)) 500 Mcg Tablet 1 Tab PO DAILY 30 Days Folic Acid 20 Mg Capsule 20 Mg PO DAILY Potassium Chloride (Potassium Chloride) 20 Meq Tablet.er 40 Meq PO BIDAC Asmanex (Mometasone Furoate) 110 Mcg Aer.pow.ba 110 Mcg IH BID Ventolin Hfa Inhaler (Albuterol Sulfate) 18 Gm Hfa.aer.ad 2 Puff INH PRN Q4HRS PRN Bevespi Aerosphere Inhaler (Glycopyrrolate/Formoterol Fum) 10.7 Gm Hfa.aer.ad 10.7 Gm IH BID Vitamin D (Cholecalciferol (Vitamin D3)) 1,000 Unit Capsule 1 Cap PO DAILY Montelukast Sodium Tablet (Montelukast Sodium) 10 Mg Tablet 1 Tab PO QHS Loratadine 10 Mg Tablet 1 Tab PO DAILY Allergies Allergies: Coded Allergies: fluticasone (Verified Allergy, Severe, anaphylaxis, 11/04/19) allergic to inhaled steroids TAKES ASMANEX AT HOME AND FLONASE NASAL SPRAY prednisone (Verified Allergy, Intermediate, hives and vomiting, 11/04/19) steroids Penicillins (Verified Allergy, Unknown, BAD RASH, 06/23/18) amoxicillin (Verified Allergy, Unknown, BAD RASH,VOMITING, 06/23/18) clavulanic acid (Verified Allergy, Unknown, BAD RASH,VOMITING, 06/23/18) ROS General: YES: Fatigue, Malaise; No: Chills, Night Sweats, Appetite, Other PSYCHOLOGICAL ROS: YES: Anxiety; No: Behavioral Disorder, Concentration difficultie, Decreased libido, Depression, Disorientation, Hallucinations, Hostility, Irritablity, Memory difficulties, Mood Swings, Obsessive thoughts, Physical abuse, Sexual abuse, Sleep disturbances, Suicidal ideation, Other Eyes: No Blurry vision, No Decreased vision, No Double vision, No Dry eyes, No Excessive tearing, No Eye Pain, No Itchy Eyes, No Loss of vision, No Photophobia, No Scotomata, No Uses contacts, No Uses glasses, No Other HEENT: No: Heacaches, Visual Changes, Hearing change, Nasal congestion, Nasal discharge, Oral lesions, Sinus pain, Sore Throat, Epistaxis, Sneezing, Snoring, Tinnitus, Vertigo, Vocal changes, Other ALLERGY AND IMMUNOLOGY: No: Hives, Insect Bite Sensitivity, Itchy/Watery Eyes, Nasal Congestion, Post Nasal Drip, Seasonal Allergies, Other Hematological and Lymphatic: No: Bleeding Problems, Blood Clots, Blood Transfusions, Brusing, Night Sweats, Pallor, Swollen Lymph Nodes, Other ENDOCRINE: No: Breast Changes, Galactorrhea, Hair Pattern Changes, Hot Flashes, Malaise/lethargy, Mood Swings, Palpitations, Polydipsia/polyuria, Skin Changes, Temperature Intolerance, Unexpected Weight Changes, Other Breast: No New/Changing Breast Lumps, No Nipple changes, No Nipple discharge, No Other Respiratory: YES: Cough, Shortness of breath, SOB with excertion, Tachypnea, Wheezing; No: Hemoptysis, Orthopnea, Pleuritic Pain, Sputum Changes, Stridor, Other Cardiovascular: No Chest Pain, No Palpitations, No Orthopnea, No Paroxysmal Noc. Dyspnea, No Edema, No Lt Headedness, No Other Gastrointestinal: No Nausea, No Vomiting, No Abdominal Pain, No Diarrhea, No Constipation, No Melena, No Hematochezia, No Other Genitourinary: No Dysuria, No Frequency, No Incontinence, No Hematuria, No Retention, No Discharge, No Urgency, No Pain, No Flank Pain, No Other, No , No , No , No , No , No , No Musculoskeletal: No Gait Disturbance, No Joint Pain, No Joint Stiffness, No Joint Swelling, No Muscle Pain, No Muscular Weakness, No Pain In:, No Swelling In:, No Other Neurological: No Behavorial Changes, No Bowel/Bladder ControlChng, No Confusion, No Dizziness, No Gait Disturbance, No Headaches, No Impaired Coord/balance, No Memory Loss, No Numbness/Tingling, No Seizures, No Speech Problems, No Tremors, No Visual Changes, No Weakness, No Other Skin: No Dry Skin, No Eczema, No Hair Changes, No Lumps, No Mole Changes, No Mottling, No Nail Changes, No Pruritus, No Rash, No Skin Lesion Changes, No Other, No Acne Physical Exam General: Alert, Oriented X3, Cooperative, mild distress HEENT: Atraumatic, PERRLA, EOMI, Mucous membr. moist/pink Lungs: Other (Scattered bilateral wheezes) Heart: S1S2, RRR, no thrills, no rubs, no gallops, no murmurs Abdomen: Normal bowel sounds, Soft, No tenderness, No hepatosplenomegaly, No masses Rectal Exam: not examined Extremities: No clubbing, No cyanosis, No edema, Normal pulses, No tenderness/swelling Skin: No rashes, No breakdown, No significant lesion Neuro: Normal gait, Normal speech, Strength at 5/5 X4 ext, Normal tone, Sensation intact, Cranial nerves 3-12 NL, Reflexes 2+ Psych/Mental Status: Mental status NL, Mood NL Vitals Vitals Vital Signs Date Time Temp Pulse Resp B/P (MAP) Pulse Ox O2 Delivery O2 Flow Rate FiO2 11/05/19 09:09 20 93 Nasal Cannula 3.0 11/05/19 08:00 97.9 91 104/55 (71) 97.9 Labs Labs Laboratory Tests Test 11/04/19 11:15 White Blood Count 10.9 x10^3/uL (4.0-11.0) Red Blood Count 4.50 x10^6/uL (3.50-5.40) Hemoglobin 14.6 g/dL (12.0-15.5) Hematocrit 43.3 % (36.0-47.0) Mean Corpuscular Volume 96 fL (79-100) Mean Corpuscular Hemoglobin 33 pg (25-35) Mean Corpuscular Hemoglobin Concent 34 g/dL (31-37) Red Cell Distribution Width 16.2 % (11.5-14.5) Platelet Count 385 x10^3/uL (140-400) Neutrophils (%) (Auto) 56 % (31-73) Lymphocytes (%) (Auto) 33 % (24-48) Monocytes (%) (Auto) 8 % (0-9) Eosinophils (%) (Auto) 2 % (0-3) Basophils (%) (Auto) 1 % (0-3) Neutrophils # (Auto) 6.1 x10^3/uL (1.8-7.7) Lymphocytes # (Auto) 3.6 x10^3/uL (1.0-4.8) Monocytes # (Auto) 0.9 x10^3/uL (0.0-1.1) Eosinophils # (Auto) 0.2 x10^3/uL (0.0-0.7) Basophils # (Auto) 0.1 x10^3/uL (0.0-0.2) Sodium Level 140 mmol/L (136-145) Potassium Level 3.4 mmol/L (3.5-5.1) Chloride Level 100 mmol/L (98-107) Carbon Dioxide Level 27 mmol/L (21-32) Anion Gap 13 (6-14) Blood Urea Nitrogen 14 mg/dL (7-20) Creatinine 0.9 mg/dL (0.6-1.0) Estimated GFR (Cockcroft-Gault) 64.3 BUN/Creatinine Ratio 16 (6-20) Glucose Level 141 mg/dL (70-99) Calcium Level 10.6 mg/dL (8.5-10.1) Total Bilirubin 0.3 mg/dL (0.2-1.0) Aspartate Amino Transf (AST/SGOT) 16 U/L (15-37) Alanine Aminotransferase (ALT/SGPT) 22 U/L (14-59) Alkaline Phosphatase 52 U/L (46-116) Troponin I Quantitative 0.018 ng/mL (0.000-0.055) ZC-Gah-H-Type Natriuretic Peptide 51 pg/mL (0-124) Total Protein 7.1 g/dL (6.4-8.2) Albumin 3.8 g/dL (3.4-5.0) Albumin/Globulin Ratio 1.2 (1.0-1.7) Images Images CXR The cardiomediastinal silhouette is normal. The pulmonary vasculature is normal. There is a few curly B lines on the right and there is mild linear reticular opacities of the lungs. Impression: Mild reticular opacities of the lungs likely chronic pulmonary fibrosis. It is difficult to exclude possible atypical pneumonia or fluid overload. VTE Prophylaxis Ordered VTE Prophylaxis Devices: Yes VTE Pharmacological Prophylaxi: Yes Assessment/Plan Assessment/Plan A/P: Dyspnea with acute hypoxic respiratory failure secondary to acute exacerbation of chronic obstructive pulmonary disease. Abnormal CXR - notes mild fibrosis. CT chest once she is ruled out for COVID-19. Hyperglycemia - possibly steroid related, will trend glucose, no hx of DM2 Hypercalcemia - possibly dilutional, will repeat levels after hydration Hypokalemia - check mag, replace Pending COVID-19 testing. Clinically, less likely. Smoker - counseled on cessation Anxiety - will give anxiolytics PSVT - will keep on telemetry H/o TB exposure - never had symptoms FEN - General diet PPX - lovenox FULL CODE KAYY VALLADARES MD November 05, 2019 12:56
[2019-11-05] MEDS: traZODone 100 MG TABLET. PO SCH (21:00)
[2019-11-05] MEDS: MONTELUKAST SODIUM 10 MG TABLET. PO SCH (21:01)
[2019-11-05] MEDS: ASPIRIN CHEWABLE 81 MG TABLET. PO SCH (21:02)
[2019-11-05] MEDS: QUEtiapine 100 MG TABLET. PO PRN (21:47)
[2019-11-06 03:30] VITALS: BP 104/59
[2019-11-06 06:48] LABS: CALCIUM 8.2 mg/dL (8.5-10.1); CREATININE 0.8 mg/dL (0.6-1.0); GFR 73.7; POTASSIUM 4.4 mmol/L (3.5-5.1)
[2019-11-06] MEDS: CYANOCOBALAMIN (VITAMIN B-12) 1,000 MCG TABLET. PO SCH (07:38)
[2019-11-06] MEDS: CHOLECALCIFEROL (VITAMIN D3) 1,000 UNIT TABLET PO SCH (07:38)
[2019-11-06] MEDS: FOLIC ACID 1 MG TABLET. PO SCH (07:39)
[2019-11-06] MEDS: HYDROcodone/APAP 7.5/325MG 1 TAB TABLET PO PRN ×2 (07:39→16:03)
[2019-11-06] MEDS: CETIRIZINE HCL 10 MG TABLET. PO SCH (07:39)
[2019-11-06] MEDS: POTASSIUM CHLORIDE 20 MEQ TABLET.ER. PO SCH ×2 (07:39→16:03)
--- NOTE | 2019-11-06 09:58 | PDOC ---
PULMONARY PROGRESS NOTES Subjective no SOA, no CP COVID 19 (-) feeling better Vitals Vital Signs Date Time Temp Pulse Resp B/P (MAP) Pulse Ox O2 Delivery O2 Flow Rate FiO2 11/06/19 07:39 20 90 Nasal Cannula 4.0 11/06/19 03:30 97.1 82 104/59 (74) 97.1 ROS: No Nausea, No Chest Pain, No Abdominal Pain, No Increase Cough General: Oriented X4 Lungs: Other ( BLL) Cardiovascular: S1 Abdomen: Soft, Non-tender Neuro Exam: Alert, Oriented Extremities: No Edema Labs Laboratory Tests Test 11/04/19 11:15 11/04/19 11:58 11/06/19 06:00 White Blood Count 10.9 x10^3/uL (4.0-11.0) Red Blood Count 4.50 x10^6/uL (3.50-5.40) Hemoglobin 14.6 g/dL (12.0-15.5) Hematocrit 43.3 % (36.0-47.0) Mean Corpuscular Volume 96 fL (79-100) Mean Corpuscular Hemoglobin 33 pg (25-35) Mean Corpuscular Hemoglobin Concent 34 g/dL (31-37) Red Cell Distribution Width 16.2 % (11.5-14.5) Platelet Count 385 x10^3/uL (140-400) Neutrophils (%) (Auto) 56 % (31-73) Lymphocytes (%) (Auto) 33 % (24-48) Monocytes (%) (Auto) 8 % (0-9) Eosinophils (%) (Auto) 2 % (0-3) Basophils (%) (Auto) 1 % (0-3) Neutrophils # (Auto) 6.1 x10^3/uL (1.8-7.7) Lymphocytes # (Auto) 3.6 x10^3/uL (1.0-4.8) Monocytes # (Auto) 0.9 x10^3/uL (0.0-1.1) Eosinophils # (Auto) 0.2 x10^3/uL (0.0-0.7) Basophils # (Auto) 0.1 x10^3/uL (0.0-0.2) Sodium Level 140 mmol/L (136-145) 141 mmol/L (136-145) Potassium Level 3.4 mmol/L (3.5-5.1) 4.4 mmol/L (3.5-5.1) Chloride Level 100 mmol/L (98-107) 108 mmol/L (98-107) Carbon Dioxide Level 27 mmol/L (21-32) 28 mmol/L (21-32) Anion Gap 13 (6-14) 5 (6-14) Blood Urea Nitrogen 14 mg/dL (7-20) 14 mg/dL (7-20) Creatinine 0.9 mg/dL (0.6-1.0) 0.8 mg/dL (0.6-1.0) Estimated GFR (Cockcroft-Gault) 64.3 73.7 BUN/Creatinine Ratio 16 (6-20) Glucose Level 141 mg/dL (70-99) 84 mg/dL (70-99) Calcium Level 10.6 mg/dL (8.5-10.1) 8.2 mg/dL (8.5-10.1) Total Bilirubin 0.3 mg/dL (0.2-1.0) Aspartate Amino Transf (AST/SGOT) 16 U/L (15-37) Alanine Aminotransferase (ALT/SGPT) 22 U/L (14-59) Alkaline Phosphatase 52 U/L (46-116) Troponin I Quantitative 0.018 ng/mL (0.000-0.055) FI-Vvu-T-Type Natriuretic Peptide 51 pg/mL (0-124) Total Protein 7.1 g/dL (6.4-8.2) Albumin 3.8 g/dL (3.4-5.0) Albumin/Globulin Ratio 1.2 (1.0-1.7) Coronavirus (COVID-19)(PCR) See separate report Magnesium Level 1.6 mg/dL (1.8-2.4) Laboratory Tests Test 11/06/19 06:00 Sodium Level 141 mmol/L (136-145) Potassium Level 4.4 mmol/L (3.5-5.1) Chloride Level 108 mmol/L (98-107) Carbon Dioxide Level 28 mmol/L (21-32) Anion Gap 5 (6-14) Blood Urea Nitrogen 14 mg/dL (7-20) Creatinine 0.8 mg/dL (0.6-1.0) Estimated GFR (Cockcroft-Gault) 73.7 Glucose Level 84 mg/dL (70-99) Calcium Level 8.2 mg/dL (8.5-10.1) Magnesium Level 1.6 mg/dL (1.8-2.4) Medications Active Scripts Medications Dose Route/Sig Max Daily Dose Days Date Category Aspirin 81 Mg Tab.chew 81 Mg PO HS 11/04/19 Reported Trazodone Hcl 50 Mg Tablet 100 Mg PO HS 11/04/19 Reported Melatonin 10 Mg Capsule 10 Mg PO HS 11/04/19 Reported Seroquel (Quetiapine Fumarate) 200 Mg Tablet 600 Mg PO HS PRN 11/04/19 Reported Cyclobenzaprine Hcl 10 Mg Tablet 10 Mg PO BID PRN 11/04/19 Reported Hydrocodone-Acetamin 7.5-325 (Hydrocodone/Acetaminophen) 1 Each Tablet 7.5-325 Mg PO Q6HRS PRN 11/04/19 Reported Benzonatate 200 Mg Capsule 200 Mg PO Q8HRS PRN 11/04/19 Reported Vitamin B-12 (Cyanocobalamin (Vitamin B-12)) 500 Mcg Tablet 1 Tab PO DAILY 30 11/04/19 Reported Folic Acid 20 Mg Capsule 20 Mg PO DAILY 11/04/19 Reported Potassium Chloride (Potassium Chloride) 20 Meq Tablet.er 40 Meq PO BIDAC 11/04/19 Reported Asmanex (Mometasone Furoate) 110 Mcg Aer.pow.ba 110 Mcg IH BID 11/04/19 Reported Ventolin Hfa Inhaler (Albuterol Sulfate) 18 Gm Hfa.aer.ad 2 Puff INH PRN Q4HRS PRN 06/22/18 Reported Bevespi Aerosphere Inhaler (Glycopyrrolate/Formoterol Fum) 10.7 Gm Hfa.aer.ad 10.7 Gm IH BID 06/22/18 Reported Vitamin D (Cholecalciferol (Vitamin D3)) 1,000 Unit Capsule 1 Cap PO DAILY 06/22/18 Reported Montelukast Sodium Tablet (Montelukast Sodium) 10 Mg Tablet 1 Tab PO QHS 06/22/18 Reported Loratadine 10 Mg Tablet 1 Tab PO DAILY 06/22/18 Reported Impression . IMPRESSION AND PLAN: 1. Dyspnea with acute hypoxic respiratory failure secondary to acute exacerbation of chronic obstructive pulmonary disease. 2. No obvious infiltrates seen on the chest x-ray. Radiographically I am not impressed with her chest x-ray report of mild fibrosis. Plan . PLAN: 1. We will consider doing CT chest today 3. COVID-19 - NEG 4. Smoking cessation counseling provided. 5. We will continue with nebulizer. 6. Keep sats > 92%. 7. 6-min walk in am transfer out of COVID-19 bubble as negative results D/W ISSAC GASTON MD November 06, 2019 09:58
--- NOTE | 2019-11-06 10:19 | NUR ---
IP: Pt is COVID negative.
[2019-11-06 11:41] VITALS: BP 126/71
--- NOTE | 2019-11-06 13:36 | PDOC ---
PROGRESS NOTES Chief Complaint Chief Complaint A/P: Dyspnea with acute hypoxic respiratory failure secondary to acute exacerbation of chronic obstructive pulmonary disease. Abnormal CXR - notes mild fibrosis. CT chest now that she is ruled out for COVID-19. Hyperglycemia - possibly steroid related, will trend glucose, no hx of DM2 Hypercalcemia - possibly dilutional, will repeat levels after hydration Hypokalemia - check mag, replace Negative COVID-19 testing. Clinically likely this is accurate Smoker - counseled on cessation Anxiety - will give anxiolytics PSVT - will keep on telemetry H/o TB exposure - never had symptoms FEN - General diet PPX - lovenox FULL CODE Dispo - transfer out of COVID unit to [facility], will need 6 minute walk prior to d/c and CT chest History of Present Illness History of Present Illness Ms Davis is a 58 yo F w/ PMHx anxiety, COPD, PSVT, History of TB exposure 30 years ago in [facility], and who has smoked for about 30 years presented to ED c/o worsening shortness of breath. She said she has a cough and chest congestion. She said that these symptoms have been going on for a few months. She denied any fever. No headaches, no nausea, vomiting or diarrhea. No hemoptysis. No weight loss. No recent travel or exposure to COVID 19 patients. CXR more consistent with COPD. She has not noted fevers at home and feels a bit improved after steroids. WBC 10.9, Hb 14.6 and platelets are 385. BUN 14 and creatinine 0.9. O2 desaturations down to 87% on room air in ED, and transitioned to 3L NCO2 with saturations 93%. HR 122 BPM EKG - Sinus tachycardia rate of [address]-T changes She was tested for COVID 19 in ED and admitted for further treatment. COVID 19 test negative she is more comfortable with her breathing, CT chest read pending. She does still have intermittent O2 desaturations requiring up to 4 L with ambulation. Cough is mild and nonproductive. Vitals Vitals Vital Signs Date Time Temp Pulse Resp B/P (MAP) Pulse Ox O2 Delivery O2 Flow Rate FiO2 11/06/19 11:41 97.9 83 18 126/71 (89) 94 Nasal Cannula 4.0 97.9 Physical Exam General: Alert, Oriented X3, Cooperative, mild distress Lungs: Other ( BLL) Abdomen: Normal bowel sounds, Soft, No tenderness, No hepatosplenomegaly, No masses Extremities: No clubbing, No cyanosis, No edema, Normal pulses, No tenderness/swelling Skin: No rashes, No breakdown, No significant lesion Labs LABS Laboratory Tests Test 11/06/19 06:00 Sodium Level 141 mmol/L (136-145) Potassium Level 4.4 mmol/L (3.5-5.1) Chloride Level 108 mmol/L (98-107) Carbon Dioxide Level 28 mmol/L (21-32) Anion Gap 5 (6-14) Blood Urea Nitrogen 14 mg/dL (7-20) Creatinine 0.8 mg/dL (0.6-1.0) Estimated GFR (Cockcroft-Gault) 73.7 Glucose Level 84 mg/dL (70-99) Calcium Level 8.2 mg/dL (8.5-10.1) Magnesium Level 1.6 mg/dL (1.8-2.4) Assessment and Plan Assessmemt and Plan Problems Medical Problems: (1) Anxiety about health Status: Acute (2) COPD exacerbation Status: Acute Comment Review of Relevant I have reviewed the following items nilay (where applicable) has been applied. Labs Laboratory Tests Test 11/06/19 06:00 Sodium Level 141 mmol/L (136-145) Potassium Level 4.4 mmol/L (3.5-5.1) Chloride Level 108 mmol/L (98-107) Carbon Dioxide Level 28 mmol/L (21-32) Anion Gap 5 (6-14) Blood Urea Nitrogen 14 mg/dL (7-20) Creatinine 0.8 mg/dL (0.6-1.0) Estimated GFR (Cockcroft-Gault) 73.7 Glucose Level 84 mg/dL (70-99) Calcium Level 8.2 mg/dL (8.5-10.1) Magnesium Level 1.6 mg/dL (1.8-2.4) Laboratory Tests Test 11/06/19 06:00 Sodium Level 141 mmol/L (136-145) Potassium Level 4.4 mmol/L (3.5-5.1) Chloride Level 108 mmol/L (98-107) Carbon Dioxide Level 28 mmol/L (21-32) Anion Gap 5 (6-14) Blood Urea Nitrogen 14 mg/dL (7-20) Creatinine 0.8 mg/dL (0.6-1.0) Estimated GFR (Cockcroft-Gault) 73.7 Glucose Level 84 mg/dL (70-99) Calcium Level 8.2 mg/dL (8.5-10.1) Magnesium Level 1.6 mg/dL (1.8-2.4) Microbiology 11/04/19 Blood Culture - Preliminary, Resulted NO GROWTH AFTER 2 DAYS Medications Current Medications Albuterol/ Ipratropium (Duoneb) 6 ml 1X ONCE NEB Last administered on 11/04/19at 12:34; Start 11/04/19 at 12:00; Stop 11/04/19 at 12:01; Status DC Methylprednisolone Sodium Succinate (SOLU-Medrol 125MG VIAL) 125 mg 1X ONCE IV Last administered on 11/04/19at 11:59; Start 11/04/19 at 12:00; Stop 11/04/19 at 12 :01; Status DC Albuterol Sulfate (Ventolin Neb Soln) 2.5 mg 1X ONCE NEB Last administered on 11/04/19at 12:34; Start 11/04/19 at 12:00; Stop 11/04/19 at 12:01; Status DC Lorazepam (Ativan Inj) 0.5 mg 1X ONCE IV Last administered on 11/04/19at 12:00; Start 11/04/19 at 12:00; Stop 11/04/19 at 12:01; Status DC Ondansetron HCl (Zofran) 4 mg PRN Q8HRS PRN IV NAUSEA/VOMITING; Start 11/04/19 at 14:00; Stop 11/05/19 at 13:59; Status DC Albuterol/ Ipratropium (Duoneb) 3 ml RTQID NEB ; Start 11/04/19 at 16:00; Stop 11/05/19 at 15:59; Status DC Aspirin (Aspirin Chewable) 81 mg HS PO Last administered on 11/05/19at 21:02; Start 11/04/19 at 21:00 Cyclobenzaprine HCl (Flexeril) 10 mg PRN BID PRN PO MUSCLE SPASTICITY Last administered on 11/05/19at 03:32; Start 11/04/19 at 18:00 Acetaminophen/ Hydrocodone Bitart (Lortab 7.5/325) 1 tab PRN Q6HRS PRN PO PAIN Last administered on 11/06/19 07:39; Start 11/04/19 at 18:00 Montelukast Sodium (Singulair) 10 mg QHS PO Last administered on 11/05/19 21:01; Start 11/04/19 at 21:00 Potassium Chloride (Klor-Con) 40 meq BIDAC PO Last administered on 11/06/19 07:39; Start 11/04/19 at 18:30 Trazodone HCl (Desyrel) 50 mg HS PO ; Start 11/04/19 at 21:00; Stop 11/04/19 at 18:57; Status DC Non-Formulary Medication (Albuterol Sulfate (Ventolin Hfa Inhaler)) 2 puff PRN Q4HRS PRN INH SHORTNESS OF BREATH; Start 11/04/19 at 18:00; Status UNV Benzonatate (Tessalon Perle) 200 mg PRN Q8HRS PRN PO COUGH Last administered on 11/05/19 21:01; Start 11/04/19 at 21:00 Vitamin D (Vitamin D3) 1,000 unit DAILY PO Last administered on 11/06/19 07:38; Start 11/05/19 at 09:00 Cyanocobalamin (Vitamin B-12) 500 mcg DAILY PO Last administered on 11/06/19 07:38; Start 11/05/19 at 09:00 Folic Acid (Folic Acid) 1 mg DAILY PO Last administered on 11/06/19 07:39; Start 11/05/19 at 09:00 Albuterol Sulfate (Ventolin Neb Soln) 2.5 mg RTQID NEB ; Start 11/04/19 at 21:00; Stop 11/05/19 at 06:31; Status DC Cetirizine HCl (ZyrTEC) 10 mg DAILY PO Last administered on 11/06/19 07:39; Start 11/05/19 at 09:00 Non-Formulary Medication (Mometasone Furoate (Asmanex)) 110 mcg BID IH ; Start 11/04/19 at 21:00; Status UNV Quetiapine Fumarate (SEROquel) 600 mg PRN QHS PRN PO AGITATION Last administered on 11/05/19at 21:47; Start 11/04/19 at 18:15 Albuterol Sulfate (Ventolin Neb Soln) 2.5 mg PRN Q4HRS PRN NEB SHORTNESS OF BREATH; Start 11/04/19 at 18:15 Fluticasone Propionate (Flonase) 2 spray DAILY NS ; Start 11/05/19 at 09:00; Status UNV Budesonide (Pulmicort) 0.5 mg RTBID NEB ; Start 11/04/19 at 20:00; Stop 11/05/19 at 06:35; Status DC Trazodone HCl (Desyrel) 100 mg QHS PO Last administered on 11/05/19at 21:00; Start 11/04/19 at 21:00 Budesonide (Pulmicort) 0.5 mg PRN BID PRN NEB WHEEZING; Start 11/05/19 at 06:45 Active Scripts Active Reported Aspirin 81 Mg Tab.chew 81 Mg PO HS Trazodone Hcl 50 Mg Tablet 100 Mg PO HS Melatonin 10 Mg Capsule 10 Mg PO HS Seroquel (Quetiapine Fumarate) 200 Mg Tablet 600 Mg PO HS PRN Cyclobenzaprine Hcl 10 Mg Tablet 10 Mg PO BID PRN Hydrocodone-Acetamin 7.5-325 (Hydrocodone/Acetaminophen) 1 Each Tablet 7.5-325 Mg PO Q6HRS PRN Benzonatate 200 Mg Capsule 200 Mg PO Q8HRS PRN Vitamin B-12 (Cyanocobalamin (Vitamin B-12)) 500 Mcg Tablet 1 Tab PO DAILY 30 Days Folic Acid 20 Mg Capsule 20 Mg PO DAILY Potassium Chloride (Potassium Chloride) 20 Meq Tablet.er 40 Meq PO BIDAC Asmanex (Mometasone Furoate) 110 Mcg Aer.pow.ba 110 Mcg IH BID Ventolin Hfa Inhaler (Albuterol Sulfate) 18 Gm Hfa.aer.ad 2 Puff INH PRN Q4HRS PRN Bevespi Aerosphere Inhaler (Glycopyrrolate/Formoterol Fum) 10.7 Gm Hfa.aer.ad 10.7 Gm IH BID Vitamin D (Cholecalciferol (Vitamin D3)) 1,000 Unit Capsule 1 Cap PO DAILY Montelukast Sodium Tablet (Montelukast Sodium) 10 Mg Tablet 1 Tab PO QHS Loratadine 10 Mg Tablet 1 Tab PO DAILY Vitals/I & O Vital Sign - Last 24 Hours 11/05/19 11/05/19 11/05/19 11/05/19 15:00 15:05 16:45 17:45 Temp 97.6 97.6 Pulse 90 Resp B/P (MAP) 166/113 (130) 110/55 (73) Pulse Ox 93 93 93 O2 Delivery Nasal Cannula Nasal Cannula Nasal Cannula O2 Flow Rate 3.5 3.0 3.0 11/05/19 11/05/19 11/05/19 11/05/19 19:40 19:40 21:02 23:00 Temp 98.5 97.3 98.5 97.3 Pulse 82 83 Resp 19 19 16 B/P (MAP) 126/72 (90) 118/53 (74) Pulse Ox 100 100 95 O2 Delivery Nasal Cannula Nasal Cannula Nasal Cannula Nasal Cannula O2 Flow Rate 4.0 4.0 4.0 3.0 11/06/19 11/06/19 11/06/19 11/06/19 03:30 07:39 08:00 08:39 Temp 97.1 97.1 Pulse 82 Resp 20 B/P (MAP) 104/59 (74) Pulse Ox 90 90 93 O2 Delivery Nasal Cannula Nasal Cannula Nasal Cannula Nasal Cannula O2 Flow Rate 3.0 4.0 4.0 3.0 11/06/19 11:41 Temp 97.9 97.9 Pulse 83 Resp 18 B/P (MAP) 126/71 (89) Pulse Ox 94 O2 Delivery Nasal Cannula O2 Flow Rate 4.0 Intake and Output 11/05/19 11/05/19 11/06/19 15:00 23:00 07:00 Intake Total 900 ml 600 ml 480 ml Output Total 3 ml 0 ml Balance 900 ml 597 ml 480 ml KAYY VALLADARES MD November 06, 2019 13:36
--- NOTE | 2019-11-06 13:51 | RAD ---
CT STUDY OF THE CHEST WITHOUT CONTRAST Clinical indications: Dyspnea. COPD. Possible pulmonary fibrosis. TECHNIQUE: Noncontrast helical CT scanning of the chest was performed. Without IV contrast, the sensitivity to detect organ pathology is decreased. PQRS compliance Statement One or more of the following individualized dose reduction techniques were utilized for this study: 1. Automated exposure control 2. Adjustment of the mA and/or kV according to patient size 3. Use of iterative reconstruction technique COMPARISON: No previous chest CT available. FINDINGS: No enlarged thoracic lymphadenopathy is evident. No focal aneurysmal dilatation of the thoracic aorta is seen. Calcified atheromatous disease of the coronary arteries is seen. The heart size is normal and no abnormal pericardial fluid collection is seen. Small amount of pericardial effusion is noted anteriorly which may be seen normally. There is minimal pleural thickening bilaterally within the posterior costophrenic angles. There is a paucity of vascular markings along with hyperinflation which may be seen with COPD. No lung mass or lung consolidation is seen. There is mild atelectasis of the posterior lower lobes bilaterally more prominent on the left side. No pneumothorax is seen. The proximal bronchial tree is patent. There is mild nodularity of the distal trachea and the proximal right mainstem bronchus. This may be due to adherent mucus. No lytic process is seen. IMPRESSION: COPD. Bibasilar atelectasis. No pulmonary fibrosis or honeycombing or lung consolidation or lung mass is seen otherwise. Mild nodularity of the distal trachea and the proximal right mainstem bronchus is seen. This most likely is due to adherent mucus. Electronically signed by: Pacheco John MD (11/06/2019 1:48 PM) [id number]
[2019-11-06] MEDS ORDERED: MAGNESIUM SULFATE 4GM 100 ML IV ONE (14:00)
[2019-11-06 15:00] VITALS: BP 104/70
[2019-11-06] MEDS: IPRATRPIUM/ALBUTEROL 0.5/2.5MG 3 ML NEBU. NEB SCH ×2 (16:34→19:26)
[2019-11-06] MEDS: MAGNESIUM OXIDE 400 MG TABLET PO SCH ×2 (17:59→23:10)
[2019-11-06 19:50] VITALS: BP 119/69
[2019-11-06] MEDS: BUDESONIDE 0.5 MG/2 ML NEBU. NEB SCH (21:00)
[2019-11-06] MEDS: MONTELUKAST SODIUM 10 MG TABLET. PO SCH (23:10)
[2019-11-06] MEDS: ASPIRIN CHEWABLE 81 MG TABLET. PO SCH (23:10)
[2019-11-06] MEDS: traZODone 100 MG TABLET. PO SCH (23:10)
[2019-11-06] MEDS: QUEtiapine 100 MG TABLET. PO PRN (23:16)
[2019-11-06 23:21] VITALS: BP 117/59
[2019-11-07] MEDS: HYDROcodone/APAP 7.5/325MG 1 TAB TABLET PO PRN ×2 (02:49→09:26)
[2019-11-07 03:15] VITALS: BP 105/63
[2019-11-07] MEDS: IPRATRPIUM/ALBUTEROL 0.5/2.5MG 3 ML NEBU. NEB SCH ×2 (07:28→11:46)
[2019-11-07] MEDS: BUDESONIDE 0.5 MG/2 ML NEBU. NEB SCH (07:28)
[2019-11-07 07:48] VITALS: BP 102/56
[2019-11-07] MEDS: POTASSIUM CHLORIDE 20 MEQ TABLET.ER. PO SCH (08:25)
[2019-11-07] MEDS: CYANOCOBALAMIN (VITAMIN B-12) 1,000 MCG TABLET. PO SCH (08:25)
[2019-11-07] MEDS: CHOLECALCIFEROL (VITAMIN D3) 1,000 UNIT TABLET PO SCH (08:25)
[2019-11-07] MEDS: MAGNESIUM OXIDE 400 MG TABLET PO SCH ×2 (08:26→14:00)
[2019-11-07] MEDS: CETIRIZINE HCL 10 MG TABLET. PO SCH (08:26)
[2019-11-07] MEDS: FOLIC ACID 1 MG TABLET. PO SCH (08:26)
--- NOTE | 2019-11-07 11:02 | PDOC ---
PULMONARY PROGRESS NOTES Subjective no SOA, no CP COVID 19 (-) feeling better Vitals Vital Signs Date Time Temp Pulse Resp B/P (MAP) Pulse Ox O2 Delivery O2 Flow Rate FiO2 11/07/19 08:00 Nasal Cannula 2.5 11/07/19 07:48 98.4 97 18 102/56 (71) 96 98.4 ROS: No Nausea, No Chest Pain, No Abdominal Pain, No Increase Cough General: Oriented X4 Lungs: Other ( BLL) Cardiovascular: S1 Abdomen: Soft, Non-tender Neuro Exam: Alert, Oriented Extremities: No Edema Labs Laboratory Tests Test 11/06/19 06:00 Sodium Level 141 mmol/L (136-145) Potassium Level 4.4 mmol/L (3.5-5.1) Chloride Level 108 mmol/L (98-107) Carbon Dioxide Level 28 mmol/L (21-32) Anion Gap 5 (6-14) Blood Urea Nitrogen 14 mg/dL (7-20) Creatinine 0.8 mg/dL (0.6-1.0) Estimated GFR (Cockcroft-Gault) 73.7 Glucose Level 84 mg/dL (70-99) Calcium Level 8.2 mg/dL (8.5-10.1) Magnesium Level 1.6 mg/dL (1.8-2.4) Medications Active Scripts Medications Dose Route/Sig Max Daily Dose Days Date Category Aspirin 81 Mg Tab.chew 81 Mg PO HS 11/04/19 Reported Trazodone Hcl 50 Mg Tablet 100 Mg PO HS 11/04/19 Reported Melatonin 10 Mg Capsule 10 Mg PO HS 11/04/19 Reported Seroquel (Quetiapine Fumarate) 200 Mg Tablet 600 Mg PO HS PRN 11/04/19 Reported Cyclobenzaprine Hcl 10 Mg Tablet 10 Mg PO BID PRN 11/04/19 Reported Hydrocodone-Acetamin 7.5-325 (Hydrocodone/Acetaminophen) 1 Each Tablet 7.5-325 Mg PO Q6HRS PRN 11/04/19 Reported Benzonatate 200 Mg Capsule 200 Mg PO Q8HRS PRN 11/04/19 Reported Vitamin B-12 (Cyanocobalamin (Vitamin B-12)) 500 Mcg Tablet 1 Tab PO DAILY 30 11/04/19 Reported Folic Acid 20 Mg Capsule 20 Mg PO DAILY 11/04/19 Reported Potassium Chloride (Potassium Chloride) 20 Meq Tablet.er 40 Meq PO BIDAC 11/04/19 Reported Asmanex (Mometasone Furoate) 110 Mcg Aer.pow.ba 110 Mcg IH BID 11/04/19 Reported Ventolin Hfa Inhaler (Albuterol Sulfate) 18 Gm Hfa.aer.ad 2 Puff INH PRN Q4HRS PRN 06/22/18 Reported Bevespi Aerosphere Inhaler (Glycopyrrolate/Formoterol Fum) 10.7 Gm Hfa.aer.ad 10.7 Gm IH BID 06/22/18 Reported Vitamin D (Cholecalciferol (Vitamin D3)) 1,000 Unit Capsule 1 Cap PO DAILY 06/22/18 Reported Montelukast Sodium Tablet (Montelukast Sodium) 10 Mg Tablet 1 Tab PO QHS 06/22/18 Reported Loratadine 10 Mg Tablet 1 Tab PO DAILY 06/22/[address] chest COPD. Bibasilar atelectasis. No pulmonary fibrosis or honeycombing or lung consolidation or lung mass is seen otherwise. Mild nodularity of the distal trachea and the proximal right mainstem bronchus is seen. This most likely is due to adherent mucus. Electronically signed by: Pacheco John MD (11/06/2019 1:48 PM) [id number] Impression . IMPRESSION AND PLAN: 1. Dyspnea with acute hypoxic respiratory failure secondary to acute exacerbation of chronic obstructive pulmonary disease. 2. No obvious infiltrates seen on the chest x-ray. Radiographically I am not impressed with her chest x-ray report of mild fibrosis. Plan . PLAN: 1. ct chest with no fibrosis 3. COVID-19 - NEG 4. Smoking cessation counseling provided. 5. We will continue with nebulizer. 6. Keep sats > 92%. 7. 6-min walk ok with dc home D/W ISSAC GASTON MD November 07, 2019 11:02
[2019-11-07 11:19] VITALS: BP 109/60
--- NOTE | 2019-11-07 11:20 | PDOC3 ---
Discharge Summary Visit Information Date of Admission: November 04, 2019 Date of Discharge: November 07, 2019 Final Diagnosis Dyspnea with acute hypoxic respiratory failure secondary to acute exacerbation of chronic obstructive pulmonary disease. Abnormal CXR - notes mild fibrosis. CT chest now that she is ruled out for COVID-19. Hyperglycemia - possibly steroid related, will trend glucose, no hx of DM2 Hypercalcemia - possibly dilutional, will repeat levels after hydration Hypokalemia - check mag, replace Negative COVID-19 testing. Clinically likely this is accurate Smoker - counseled on cessation Anxiety - will give anxiolytics PSVT limitedd, no recurrence on tele 3 days Problems Medical Problems: (1) Anxiety about health Status: Acute (2) COPD exacerbation Status: Acute Brief Hospital Course Allergies Allergies Coded Allergies Type Severity Reaction Last Updated Verified fluticasone Allergy Severe anaphylaxis 11/04/19 Yes prednisone Allergy Intermediate hives and vomiting 11/04/19 Yes Penicillins Allergy Unknown BAD RASH 06/23/18 Yes amoxicillin Allergy Unknown BAD RASH,VOMITING 06/23/18 Yes clavulanic acid Allergy Unknown BAD RASH,VOMITING 06/23/18 Yes Vital Signs Vital Signs Date Time Temp Pulse Resp B/P (MAP) Pulse Ox O2 Delivery O2 Flow Rate FiO2 11/07/19 08:00 Nasal Cannula 2.5 11/07/19 07:48 98.4 97 18 102/56 (71) 96 98.4 Lab Results Laboratory Tests Test 11/06/19 06:00 Sodium Level 141 mmol/L (136-145) Potassium Level 4.4 mmol/L (3.5-5.1) Chloride Level 108 mmol/L (98-107) Carbon Dioxide Level 28 mmol/L (21-32) Anion Gap 5 (6-14) Blood Urea Nitrogen 14 mg/dL (7-20) Creatinine 0.8 mg/dL (0.6-1.0) Estimated GFR (Cockcroft-Gault) 73.7 Glucose Level 84 mg/dL (70-99) Calcium Level 8.2 mg/dL (8.5-10.1) Magnesium Level 1.6 mg/dL (1.8-2.4) Brief Hospital Course Ms Davis is a 58 yo F w/ PMHx anxiety, COPD, PSVT, History of TB exposure 30 years ago in [place], and who has smoked for about 30 years presented to ED c/o worsening shortness of breath. She said she has a cough and chest congestion. She said that these symptoms have been going on for a few months. She denied any fever. No headaches, no nausea, vomiting or diarrhea. No hemoptysis. No weight loss. No recent travel or exposure to COVID 19 patients. CXR more consistent with COPD. She has not noted fevers at home and feels a bit improved after steroids. WBC 10.9, Hb 14.6 and platelets are 385. BUN 14 and creatinine 0.9. O2 desaturations down to 87% on room air in ED, and transitioned to 3L NCO2 with saturations 93%. HR 122 BPM EKG - Sinus tachycardia rate of [address]-T changes She was tested for COVID 19 in ED and was negative breathing better, anxiety exacerbated admit status, Discharge Information Condition at Discharge: Improved Follow Up: Weeks Disposition/Orders: D/C to Home Scheduled Aspirin (Aspirin) 81 Mg Tab.chew, 81 MG PO HS for heart health, (Reported) Entered as Reported by: ROGER MONTANA on 11/04/191715 Last Action: Continued on 11/04/191799 by JONATHAN MONTERROSO MD Cholecalciferol (Vitamin D3) (Vitamin D) 1,000 Unit Capsule, 1 CAP PO DAILY for SUPPLEMENT, #30 Ref 3 (Reported) Entered as Reported by: BAKARI BUTT on 06/22/18 1259 Last Action: Converted on 11/04/191799 by JONATHAN MONTERROSO MD Cyanocobalamin (Vitamin B-12) (Vitamin B-12) 500 Mcg Tablet, 1 TAB PO DAILY for supplement for 30 Days, #30 Ref 0 (Reported) Entered as Reported by: ROGER MONTANA on 11/04/191704 Last Action: Converted on 11/04/191799 by JONATHAN MONTERROSO MD Folic Acid (Folic Acid) 20 Mg Capsule, 20 MG PO DAILY for supplement, (Reported) Entered as Reported by: ROGER MONTANA on 11/04/191704 Last Action: Converted on 11/04/191799 by JONATHAN MONTERROSO MD Glycopyrrolate/Formoterol Fum (Bevespi Aerosphere Inhaler) 10.7 Gm Hfa.aer.ad, 10.7 GM IH BID for SOB, (Reported) Entered as Reported by: BAKARI BUTT on 06/22/18 1300 Last Action: Converted on 11/04/19 1800 by JONATHAN MONTERROSO MD Loratadine (Loratadine) 10 Mg Tablet, 1 TAB PO DAILY for ALLERGY, #30 Ref 5 (Reported) Entered as Reported by: BAKARI BUTT on 06/22/18 125 Last Action: Converted on 11/04/19 1800 by JONATHAN MONTERROSO MD Melatonin (Melatonin) 10 Mg Capsule, 10 MG PO HS for insomnia, (Reported) Entered as Reported by: ROGER MONTANA on 11/04/191712 Last Action: New Order on 11/04/191712 by ROGER MONTANA Mometasone Furoate (Asmanex) 110 Mcg Aer.pow.ba, 110 MCG IH BID for COPD, (Reported) Entered as Reported by: ROGER MONTANA on 11/04/191704 Last Action: Converted on 11/04/191799 by JONATHAN MONTERROSO MD Montelukast Sodium (Montelukast Sodium Tablet ) 10 Mg Tablet, 1 TAB PO QHS for ALLERGY, #30 Ref 5 (Reported) Entered as Reported by: BAKARI BUTT on 06/22/181254 Last Action: Continued on 11/04/191799 by JONATHAN MONTERROSO MD Potassium Chloride (Potassium Chloride ) 20 Meq Tablet.er, 40 MEQ PO BIDAC for SUPPLEMENT, (Reported) Entered as Reported by: ROGER MONTANA on 11/04/191704 Last Action: Continued on 11/04/191799 by JONATHAN MONTERROSO MD Trazodone Hcl (Trazodone Hcl) 50 Mg Tablet, 100 MG PO HS for insomnia, (Reported) Entered as Reported by: ROGER MONTANA on 11/04/191712 Last Action: Edited on 11/04/191854 by ROGER MONTAAN Scheduled PRN Albuterol Sulfate (Ventolin Hfa Inhaler) 18 Gm Hfa.aer.ad, 2 PUFF INH PRN Q4HRS PRN for SHORTNESS OF BREATH, Ref 0 (Reported) Entered as Reported by: BAKARI BUTT on 06/22/18 1301 Last Action: Converted on 11/04/191799 by JONATHAN MONTERROSO MD Benzonatate (Benzonatate) 200 Mg Capsule, 200 MG PO Q8HRS PRN for COUGH, (Reported) Entered as Reported by: ROGER MONTANA on 11/04/191712 Last Action: Converted on 11/04/191799 by JONATHAN MONTERROSO MD Cyclobenzaprine Hcl (Cyclobenzaprine Hcl) 10 Mg Tablet, 10 MG PO BID PRN for MUSCLE SPASTICITY, (Reported) Entered as Reported by: ROGER MONTANA on 11/04/191712 Last Action: Continued on 11/04/191799 by JONATHAN MONTERROSO MD Hydrocodone/Acetaminophen (Hydrocodone-Acetamin 7.5-325) 1 Each Tablet, 7.5-325 MG PO Q6HRS PRN for PAIN, (Reported) Entered as Reported by: ROGER MONTANA on 11/04/191712 Last Action: Continued on 11/04/191799 by JONATHAN MONTERROSO MD Quetiapine Fumarate (Seroquel) 200 Mg Tablet, 600 MG PO HS PRN for ANXIETY / AGITATION, (Reported) Entered as Reported by: ROGER MONTANA on 11/04/191712 Last Action: Converted on 11/04/191799 by JONATHAN MONTERROSO MD Patient Instructions Patient Instructions > 30 min face to face CT CHEST IMPRESSION: COPD. Bibasilar atelectasis. No pulmonary fibrosis or honeycombing or lung consolidation or lung mass is seen otherwise. Mild nodularity of the distal trachea and the proximal right mainstem bronchus is seen. This most likely is due to adherent mucus. USMAN WILD MD November 07, 2019 11:20
--- NOTE | 2019-11-07 11:53 | NUR ---
SS following for discharge planning. SS reviewed pt chart and discussed with pt RN. Pt is from home and is currently requiring oxygen. Discharge order on the chart for home with self care pending six minute walk. Pt is COVID19 negative. SS will continue to follow for discharge planning.
[2019-11-07 15:20] VITALS: BP 130/62
--- NOTE | 2019-11-07 15:36 | NUR ---
Discharge Note: PATTIE BTAES [address] Discharge instructions and discharge home medications reviewed with Patient and a copy given. All questions have been answered and understanding verbalized. The following instructions and handouts were given: followup instructions. Discontinued lines and drains: catheter tip intact. Patient discharged to home with self care via private vehicle.
== END 2019-11-07 16:17 | disposition home or self-care (01) | DRG 189 ==
LOC: ER 11:00 → 6 SOUTH 15:26
PROVIDERS: ADMIT Family Medicine; ATTEND Family Medicine
DX: J96.01 Acute respiratory failure with hypoxia (principal); J44.1 Chronic obstructive pulmonary disease with (acute) exacerbation; I47.1 Supraventricular tachycardia; E87.6 Hypokalemia; E83.52 Hypercalcemia; F17.210 Nicotine dependence, cigarettes, uncomplicated; F41.1 Generalized anxiety disorder; R73.9 Hyperglycemia, unspecified; Z82.49 Family history of ischemic heart disease and other diseases of the circulatory system; Z90.710 Acquired absence of both cervix and uterus; Z88.1 Allergy status to other antibiotic agents; Z88.0 Allergy status to penicillin; Z88.8 Allergy status to other drugs, medicaments and biological substances; Z03.818 Encounter for observation for suspected exposure to other biological agents ruled out; Z71.6 Tobacco abuse counseling
CPT/HCPCS: 36415; 71045; 71250; 80048; 80053; 83735; 83880; 84484; 85025; 87040; 87635; 93005; 94640; J2060; J2930; J3475; G0378; J7613; J7626

== ENCOUNTER → 2021-10-07 | Outpatient (CLI) | payer OTHER ==
[2020-05-17 15:00] VITALS: BP 103/54
[~2021-10-07] MED LIST changes: +ASPI-630 PO; +ATEN25TA PO; +BENZ200C47 PO; +CYAN500T7 PO; +CYCL10TA19 PO; -CYCL10TA2 PO; +FLUT1BLS3 PO; +FOLIC ACID20 MG PO; +HYDR-2763 PO; +HYDR25TA10 PO; +MAGN250T10 PO; +MELA10CA PO; +METF500T16 PO; +METO25TA4 PO; +MOME110A IH; +MULT-445 PO; -MULT1TAB52 PO; +QUET200T2 PO; +QUET200T4 PO; +ROSU20TA28 PO; +TRAZ-118 PO
--- NOTE | 2021-10-07 12:15 | KCIC ---
Examination: MRI of the left shoulder without contrast HISTORY: History of left shoulder pain COMPARISON: 08/08/2019 TECHNIQUE: Multiplanar, multisequence MR imaging of the left shoulder performed without contrast FINDINGS: The long head of the biceps tendon within the bicipital groove. The attachment of the long head the b iceps tendon to the superior labral anchor grossly appears intact. The attachment of the subscapulari s tendon grossly appears intact. There is moderate increased T2 signal identified in the subscapularis, supraspinatus clinical data te ndons likely moderate tendinosis. There is small focus of increased signal identified in the supraspi natus tendon dictation of fluid in subacromial subdeltoid bursa could be a small full-thickness tear. The acromion is type II. Moderate degenerative disease recommended likely joint, glenohumeral joint. There is patchy high T2 and low T1 signal identified in the head and neck of the humerus. The visualized labrum grossly appears unremarkable. Small subchondral cystic changes identified in th e glenoid. Deep fissuring of cartilage identified in the glenohumeral joint. IMPRESSION: 1. Patchy high T2 and low T1 signal identified in the head and neck of the humerus could be secondar y to stress fracture or stress reactive change. Other conditions such as inflammatory arthropathy can not be excluded. 2. Small focus of increased signal identified in the supraspinatus tendon with extension of fluid in to subacromial subdeltoid bursa could be a small full-thickness tear. 3. Moderate tendinosis of the rotator cuff. 4. Moderate degenerative changes glenohumeral joint, acromioclavicular joint. Electronically signed by: Panchito Us MD (10/07/2021 12:12 PM) [place] [id number]
== END ==
LOC: KCIC MRI 10:39
PROVIDERS: ATTEND Orthopaedic Surgery Sports Medicine
DX: M19.012 Primary osteoarthritis, left shoulder (principal); M75.82 Other shoulder lesions, left shoulder; M25.812 Other specified joint disorders, left shoulder
CPT/HCPCS: 73221